=== PATIENT | female | born 1935 | race African-American/Black ===

== ENCOUNTER 2017-03-17 19:07 | Inpatient (IN) | payer MEDICARE ==
[~2017-03-17] VITALS: Ht 157.5 cm; Wt 49.0 kg
--- NOTE | 2017-03-17 19:07 | NUR ---
TO BED 2 BIB PARAMEDICS C/O GENERALIZED WEAKNESS, GLF 3 TIMES TODAY. PT AAOX4 NO ACUTE DISTRESS NOTED, RESP EVEN AND UNLABORED. PLACE PT ON CARDIAC MONITORING, CONTINUOUS POX, O2@2L/NC. PUPILS PERRLA, PT ABLE TO MOVE ALL EXTREMITIES WELL WITH BILATERAL EQUAL WASTE EXAMINER. PENDING ER MD VILLANUEVA.
[2017-03-17] MEDS ORDERED: IV NS 0.9% 1,000 ML BAG IV ONE (19:30)
--- NOTE | 2017-03-17 19:39 | NUR ---
KARI ZAIDI AT BEDSIDE.
[2017-03-17 19:58] LABS: BASOPHILS # (AUTO) 0.1 /CMM (0.0-0.2); BASOPHILS % (AUTO) 0.8 % (0.0-2.0); EOSINOPHILS # (AUTO) 0.2 /CMM (0.0-0.7); EOSINOPHILS % (AUTO) 3.1 % (0.0-6.0); HEMATOCRIT 39 % (33-45); HEMOGLOBIN 12.5 g/dL (11.5-14.8); LYMPHOCYTES # (AUTO) 1.2 /CMM (0.8-4.8); LYMPHOCYTES % (AUTO) 16.8 % (20.0-44.0); MEAN CORPUSCULAR HEMOGLOBIN 31 PG (26.0-33.0); MEAN CORPUSCULAR HGB CONC 32 g/dl (31.0-36.0); MEAN CORPUSCULAR VOLUME 95 fL (82-100); MONOCYTES # (AUTO) 0.3 /CMM (0.1-1.30); MONOCYTES % (AUTO) 4.3 % (2.0-12.0); NEUTROPHILS # (AUTO) 5.6 /CMM (1.8-8.9); PLATELET COUNT (AUTO) 109 /CMM (150-450); RDW COEFFICIENT OF VARIATION 13.6 (11.5-15.0); RED BLOOD CELL COUNT(AUTO) 4.09 MIL/uL (4.0-5.2); WHITE BLOOD COUNT (AUTO) 7.4 K/uL (4.3-11.0)
[2017-03-17 20:05] LABS: CALCIUM, SERUM 9.3 mg/dL (8.5-10.1); CARBON DIOXIDE 26 mmol/L (21-32); CHLORIDE 106 mmol/L (98-107); GLUCOSE 104 mg/dL (74-106); POTASSIUM 4.1 mmol/L (3.5-5.1); SODIUM SERUM 141 mmol/L (136-145); UREA NITROGEN, BLOOD 33 mg/dL (7-18)
--- NOTE | 2017-03-17 20:05 | NUR ---
PT'S DAUGHTER ANNA IN [place] PT'S "OLD OLD OLD" SON MARKUS IN [place] PT LIVES WITH SON, SRIKANTH . CAN CALL FOR TRANSPORT HOME IF PT HAPPENS TO BE DC'D. PER ANNA, FAMILY TENSION WITH PT'S SON MARKUS; MAY CALL TO SEE IF MARKUS IS VISITING PT BEFORE PICKING UP PT IF THE PT IS POSSIBLY DC'D.
[2017-03-17 20:08] LABS: INR 0.94 (0.87-1.13); PROTHROMBIN TIME 9.8 SECS (9.5-12.7)
[2017-03-17 20:11] LABS: ALANINE AMINOTRANSFERASE 45 U/L (12-78); ALKALINE PHOSPHATASE 77 U/L (46-116); ASPARTATE AMINOTRANSFERASE 39 U/L (15-37); BILIRUBIN,DIRECT 0.1 mg/dL (0.0-0.2); BILIRUBIN,TOTAL 0.4 mg/dL (0.2-1.0)
--- NOTE | 2017-03-17 20:15 | NUR ---
PT TRANSPORTED TO RADIOLOGY FOR CT'S.
--- NOTE | 2017-03-17 20:27 | NUR ---
PT BACK FROM RADIOLOGY. PENDING CT RESULTS.
--- NOTE | 2017-03-17 21:09 | NUR ---
REPORT CALLED TO [facility]EM[facility] FLOORYISEL GROVES. WILL TRANSPORT PT VIA ACLS PROTOCOL.
[2017-03-17 21:20] LABS: BAND % (MANUAL) 1 % (0.0-5.0); BASOPHILS % (MANUAL) 0 % (0.0-2.0); EOSINOPHILS % (MANUAL) 4 % (0-4); LYMPHOCYTES % (MANUAL) 14 % (16-48); MONOCYTES % (MANUAL) 9 % (0-11.0); NEUTROPHILS % (MANUAL) 72 (42-76)
[2017-03-17] MEDS ORDERED: ACETAMINOPHEN 325 MG TABLET PO PRN (21:30)
[2017-03-17] MEDS ORDERED: KETOROLAC TROMETHAMINE INJ 30 MG/ML VIAL IV PRN (21:30)
[2017-03-17] MEDS ORDERED: ONDANSETRON HCL/PF 4 MG/2 ML VIAL IVP PRN (21:30)
[2017-03-17 21:35] VITALS: BP 170/92
--- NOTE | 2017-03-17 22:00 | NUR ---
LAB INSTRUCTOR NOTES: ADMITTED AN 81 YRS. PT. VIA STRETCHER TO RM 105 W/ ADMITTING DX: OF WEAKNESS/FALL. A/O X 3. ABLE TO MAKE NEEDS KNOWN. W/ O2 @ 2LPM VIA N/C SAT 97 %. W/ IVF 1/2 NS @ 60 ML/HR GOING ON VIA LAC W/ NO S/S OF INFECTION/INFECTION NOTED. HAS MULTIPLE BRUISES ON LEFT HIP/BUTTOCK, LEFT KNEE AND LEFT ANKLE DUE TO FALL. PT. ALSO SMOKES 1/2 CIGARETTS DAILY. LIVES W/ HER SON. ALL NEEDS MEET AND ATTENDED AND MEET. CALL LIGHT W/ REACH. SCD ON. ON TELE MONITOR SR @ 92'S.
[2017-03-17] MEDS: IV 1/2NS 1000 ML 1,000 ML IV PRN (22:19)
[2017-03-18] VITALS: BP 145/79
[2017-03-18] MEDS ORDERED: CLONIDINE HCL 0.1 MG TABLET PO PRN
[2017-03-18] MEDS ORDERED: AMLODIPINE BESYLATE 5 MG TABLET ONE (00:03)
[2017-03-18] MEDS: AMLODIPINE BESYLATE 5 MG TABLET PO SCH ×2 (00:07→10:29)
[2017-03-18 04:00] VITALS: BP 124/70
[2017-03-18 06:34] LABS: BASOPHILS # (AUTO) 0.1 /CMM (0.0-0.2); BASOPHILS % (AUTO) 0.9 % (0.0-2.0); EOSINOPHILS # (AUTO) 0.4 /CMM (0.0-0.7); EOSINOPHILS % (AUTO) 6.1 % (0.0-6.0); HEMATOCRIT 36 % (33-45); HEMOGLOBIN 11.9 g/dL (11.5-14.8); LYMPHOCYTES # (AUTO) 1.6 /CMM (0.8-4.8); LYMPHOCYTES % (AUTO) 25.4 % (20.0-44.0); MEAN CORPUSCULAR HEMOGLOBIN 32 PG (26.0-33.0); MEAN CORPUSCULAR HGB CONC 33 g/dl (31.0-36.0); MEAN CORPUSCULAR VOLUME 96 fL (82-100); MONOCYTES # (AUTO) 0.3 /CMM (0.1-1.30); MONOCYTES % (AUTO) 5.2 % (2.0-12.0); NEUTROPHILS # (AUTO) 3.9 /CMM (1.8-8.9); NEUTROPHILS % (AUTO) 62.4 % (43.0-81.0); PLATELET COUNT (AUTO) 96 /CMM (150-450); RDW COEFFICIENT OF VARIATION 14.2 (11.5-15.0); RED BLOOD CELL COUNT(AUTO) 3.76 MIL/uL (4.0-5.2); WHITE BLOOD COUNT (AUTO) 6.3 K/uL (4.3-11.0)
[2017-03-18 06:53] LABS: CHOLESTEROL 215 mg/dL (<200); CREATINE KINASE, TOTAL 302 U/L (26-192); HDL CHOLESTEROL 55 mg/dL (40-60); LDL 141 mg/dL (0-99); THYROID STIMULATING HORMONE 13.088 uIU/mL (0.358-3.74); TRIGLYCERIDES 86 mg/dL (30-150)
[2017-03-18 06:55] LABS: ALANINE AMINOTRANSFERASE 41 U/L (12-78); ALBUMIN 3.4 g/dL (3.4-5.0); ALKALINE PHOSPHATASE 73 U/L (46-116); ASPARTATE AMINOTRANSFERASE 33 U/L (15-37); BILIRUBIN,TOTAL 0.4 mg/dL (0.2-1.0); CALCIUM, SERUM 8.9 mg/dL (8.5-10.1); CARBON DIOXIDE 25 mmol/L (21-32); CHLORIDE 109 mmol/L (98-107); CREATININE 0.8 mg/dL (0.6-1.3); GLUCOSE 82 mg/dL (74-106); PHOSPHORUS 3.2 mg/dL (2.5-4.9); POTASSIUM 3.7 mmol/L (3.5-5.1); SODIUM SERUM 143 mmol/L (136-145); TOTAL PROTEIN, SERUM 6.3 g/dL (6.4-8.2); UREA NITROGEN, BLOOD 24 mg/dL (7-18)
--- NOTE | 2017-03-18 07:28 | NUR ---
RN/TELE NOTES: PT. REMAINED NOT IN ANY ACUTE DISTRESS AT THIS TIME. W/ IVF GOING. PT. IS CONTINENT ABLE TO AMBULATE W/ ASSIST TO THE BATHROOM. ELEM BUT DOES NOT WEAR ANY HEARING AIDS. CALL LIGHT W/ REACH. ALL NEEDS MEET. REPORT GIVEN TO NEXT SHIFT NURSE FOR ЕКАТЕРИНА.
[2017-03-18 07:32] LABS: CREATINE KINASE MB 1.3 ng/mL (0-3.6)
--- NOTE | 2017-03-18 07:37 | NUR ---
INITIAL BOX BLANK MACHINE OPERATOR NOTE RCVD PT AWAKE AND ALERT, SHOWING NO S/O DISTRESS/PAIN AT THIS TIME. SR ON TELE. ABLE TO AMBULATE TO BATHROOM WITH ONE PERSON ASSISTANCE. LAC #18 C/D/I/PATENT. NO S/O INFILTRATION/PHLEBITIS OBSERVED IVF INFUSING. WILL CONTINUE TO MONITOR PT FOR SAFETY AND COMFORT. CALL LIGHT WITHIN REACH. BED IN LOW AND LOCKED POSITION. PT INSTRUCTED TO REQUEST ASSISTANCE WHEN NEEDING TO GO TO BATHROOM. PT ACKNOWLEDGED.
[2017-03-18 08:00] VITALS: BP 140/68
[2017-03-18] MEDS ORDERED: QUET25TA PO (08:24)
[2017-03-18] MEDS ORDERED: DOXE50CA4 PO (08:24)
[2017-03-18] MEDS ORDERED: LEVO137T2 PO (08:24)
[2017-03-18] MEDS ORDERED: CITA40TA11 PO (08:24)
[2017-03-18] MEDS ORDERED: ASPI81TA2 PO (08:24)
[2017-03-18 09:42] LABS: BAND % (MANUAL) 1 % (0.0-5.0); EOSINOPHILS % (MANUAL) 6 % (0-4); LYMPHOCYTES % (MANUAL) 15 % (16-48); MONOCYTES % (MANUAL) 3 % (0-11.0); NEUTROPHILS % (MANUAL) 75 (42-76)
--- NOTE | 2017-03-18 10:47 | NUR ---
JOINT TERMINAL ATTACK CONTROLLER NOTE DR. HINES AT BEDSIDE ASSESSING PT. PT INFORMED HIM OF PT'S KIDS STATING THAT PT'S SPEECH IS SLURRED, HX OF TIA, AND MULTIPLE FALLS. DR. HINES ACKNOWLEDGED INFO AND WILL COMMUNICATE WITH DR. MAGDALENO. Addendum: 03/18/17 at 1210 by DIONNA COLE RN ADDENDUM DR. HINES ALSO INFORMED THAT PT'S HOME MEDICATIONS NOT BEING CARRIED OVER TO INPATIENT STATUS. HE ACKNOWLEDGED. DIET ORDER REQUESTED AND OBTAINED. BEDSIDE SWALLOW EVAL DONE. PT SWALLOWING WITHOUT ANY DIFFICULTY. NO COUGHING OBSERVED UPON SWALLOWING APPLE SAUCE, JELLO, AND THIN LIQUIDS. DIET ORDERED.
[2017-03-18 12:00] VITALS: BP 145/74
[2017-03-18 16:00] VITALS: BP 131/75
[2017-03-18] MEDS: IV 1/2NS 1000 ML 1,000 ML IV PRN (16:01)
--- NOTE | 2017-03-18 18:18 | NUR ---
SERVICES CLERK NOTE PT AWAKE AND ALERT, SHOWING NO S/O DISTRESS, SR ON TELE. AMBULATORY WITH ONE PERSON ASSISTANCE, WEAK GAIT. IV SITE REMAINS C/D/I/PATENT. IVF INFUSING NO S/O INFILTRATION/PHLEBITIS OBSERVED. PT'S CARE WILL BE ENDORSED TO REFERENCE TEST CLERK RN FOR CONTINUITY OF CARE.
--- NOTE | 2017-03-18 19:30 | NUR ---
RN/TELE NOTES: RECEIVED PT. IN BED A/O X 3. NO S/S OF ANY RESPIRATORY DISTRESS NOTED. SAT. 98 % RA. IVF GOING ON VIA LAC W/ NO S/S OF INFECTION/INFILTRATION NOTED. CONTINENT OF B/B. ABLE TO AMBULATE W/ ASSIST. CALL LIGHT W/ REACH. ALL NEEDS MEET. WILL CONTINUE TO MONITOR.
[2017-03-18 20:00] VITALS: BP 146/91
[2017-03-19] VITALS: BP 134/74
[2017-03-19 04:00] VITALS: BP 142/70
[2017-03-19 05:10] LABS: APPEARANCE,URINE CLEAR (CLEAR); BILIRUBIN,URINE NEGATIVE (NEGATIVE); BLOOD, URINE NEGATIVE Ery/uL (NEGATIVE); COLOR,URINE YELLOW (YELLOW); KETONES,URINE NEGATIVE (NEGATIVE); LEUKOCYTE ESTERASE ,URINE NEGATIVE (NEGATIVE); NITRITE, URINE NEGATIVE (NEGATIVE); PROTEIN,URINE NEGATIVE (NEGATIVE); UGLUCOSE NEGATIVE (NEGATIVE); UROBILINOGEN,URINE 0.2 EU/dL (0.2)
--- NOTE | 2017-03-19 07:54 | NUR ---
HAT FINISHER NOTES RECIEVED PT AWAKE ON BED A/O X 3. ON ROOM AIR TOLERATING WELL, NO SIGNS AND SYMPTOMS OF DISTRESS. ROOM AIR SATURATION 96. BED ALARM IN PLACE. IV 1/2 NSS VIA LEFT AC. PLAN OF CARE DISCUSS OF PATIENT. NO PAIN. CALL LIGHT WITHIN REACH. SAFETY FALL PRECAUTION OBSERVED.
[2017-03-19 08:00] VITALS: BP 162/73
[2017-03-19] MEDS: AMLODIPINE BESYLATE 5 MG TABLET PO SCH (08:44)
--- NOTE | 2017-03-19 10:00 | NUR ---
MS RN NOTES DR HINES BESIDE, WILL ORDER D/C PT HOME WITH HOME HEALTH. SPOKE WITH PERFORATOR AND STATED THAT HE WILL ARRANGE HOME HEALTH.
--- NOTE | 2017-03-19 11:53 | NUR ---
MS RN NOTE SEEN BY PT. ABLE TO USE WALKER. AMBULATED WELL
--- NOTE | 2017-03-19 12:00 | NUR ---
MS RN NOTE SITTING ON CHAIR , ABLE TO FEED SELF .
[2017-03-19 12:10] VITALS: BP 151/78
--- NOTE | 2017-03-19 15:28 | NUR ---
MS RN NOTE SON MARKUS AT BEDSIDE , DISCHARGE INSTRUCTION GIVEN ,UNDERSTOOD, HL REMOVED NO S\S INFECTION NOTED , NO C\ O PAIN AT THIS TIME, INSTRUCTED TO HOW TO TAKE HOME MEDS AND ,POSSIBLE SIDE EFFECTS, ALSO INSTRUCTED TO FOLLOW UP PCP NEXT WEEK, HOME HEALTH CARE WILL BE ARRANGE BY THE [facility] APPLICATION ADMINISTRATOR. PT WENT TO THE LOBBY WITH SON AND PTS V/S ARE STABLE. PT WENT HOME ACCOMPANIED BY SON WITH STABLE CONDITION.
== END 2017-03-19 15:25 | disposition home health service (06) | DRG 684 ==
LOC: ER 19:12 → TELE1 21:16
PROVIDERS: ADMIT Nurse Practitioner Acute Care; ATTEND Nurse Practitioner Acute Care
DX: N17.0 Acute kidney failure with tubular necrosis (principal); D69.6 Thrombocytopenia, unspecified; E86.0 Dehydration; W01.0XXA Fall on same level from slipping, tripping and stumbling without subsequent striking against object, initial encounter; M06.9 Rheumatoid arthritis, unspecified; Y92.002 Bathroom of unspecified non-institutional (private) residence as the place of occurrence of the external cause; Z88.5 Allergy status to narcotic agent; Z86.73 Personal history of transient ischemic attack (TIA), and cerebral infarction without residual deficits; Z90.710 Acquired absence of both cervix and uterus; R29.6 Repeated falls; M43.12 Spondylolisthesis, cervical region; I10 Essential (primary) hypertension; M50.30 Other cervical disc degeneration, unspecified cervical region; F17.200 Nicotine dependence, unspecified, uncomplicated; Z79.82 Long term (current) use of aspirin; Z79.899 Other long term (current) drug therapy; Z90.49 Acquired absence of other specified parts of digestive tract; R74.0 Nonspecific elevation of levels of transaminase and lactic acid dehydrogenase [LDH]
CPT/HCPCS: 36415; 70450-TC; 71010-TC; 72125-TC; 80048-TC; 80053-TC; 80061-TC; 80076-TC; 81000-TC; 82550-TC; 82553-TC; 82962-TC; 83735-TC; 83880; 84100-TC; 84439-TC; 84443-TC; 84484-TC; 85025-TC; 85730-TC; 87081-TC; 87086-TC; A4606; J3490; Z7610